=== PATIENT | male | born 1930 | race Caucasian/White ===

== ENCOUNTER 2017-03-18 10:15 | Outpatient (CLI) | payer MEDICARE, OTHER | END 2017-03-18 10:16 | disposition home or self-care (01) | DX: M06.842 Other specified rheumatoid arthritis, left hand (principal); M06.841 Other specified rheumatoid arthritis, right hand; M19.042 Primary osteoarthritis, left hand; M19.041 Primary osteoarthritis, right hand; M79.5 Residual foreign body in soft tissue ==

== ENCOUNTER 2017-05-04 13:18 | Emergency (ER) | payer MEDICARE, OTHER ==
[2017-05-04 13:22] VITALS: BP 148/53
--- NOTE | 2017-05-04 13:49 | ED Physician Documentation ---
History of Present Illness - Stated complaint Stated Complaint: THROAT OBSTRUCTION - Chief complaint Chief Complaint: Heent - History obtained from History obtained from: Patient, Family - History of Present Illness Timing: Enter time (0), Today - Additonal information Additional information: 87 y/o male with a history of GERD was eating a piece of chicken today when he coughed and when he coughed he felt the piece of chicken he was eating get stuck in his esophagus. He feels like it is stuck about [address] He is having some coughing paroxysms Review of Systems Constitutional: denies: Fever Ears: denies: Ear pain Nose: denies: Congestion Throat: denies: Sore throat Cardiac: denies: Chest pain / pressure, Palpitations Respiratory: reports: Cough. denies: Dyspnea GI: denies: Abdominal Pain, Nausea, Vomiting : denies: Dysuria, Frequency PD PAST MEDICAL HISTORY - Past Medical History Cardiovascular: Hypertension, High cholesterol, Other Respiratory: Other Neuro: Headache/migraine Endocrine/Autoimmune: HyPOthyroidism GI: GERD, Colon polyps, Chronic constipation : Benign prostate hypertrophy, Incontinence HEENT: Other Psych: Depression, Anxiety Musculoskeletal: Chronic back pain Derm: None - Past Surgical History Past Surgical History: Yes General: Colonoscopy, EGD Cardiovascular: AAA HEENT: Cataracts - Present Medications Home Medications: Ambulatory Orders Medication Instructions Recorded Confirmed Alfuzosin HCl [Uroxatral] 10 mg PO DAILY 07/13/13 05/04/17 Aspirin [Brianne] 325 mg PO DAILY 07/13/13 05/04/17 Atorvastatin Calcium [Lipitor] 10 mg PO DAILY 07/13/13 05/04/17 Calcium Carbonate [Calcium] 600 mg PO DAILY 07/13/13 05/04/17 Esomeprazole Magnesium [Nexium] 40 mg PO DAILY 07/13/13 05/04/17 Lisinopril 1 tab ORAL DAILY 07/13/13 05/04/17 [place]-3 Fatty Acids/Fish Oil 1 each PO BID 07/13/13 05/04/17 [[place] 3 1,000 mg Softgel] Levothyroxine Sodium [Levoxyl] 25 mcg PO DAILY 02/29/16 05/04/17 Lubiprostone [Amitiza] 1 tab DAILY 02/29/16 05/04/17 lamoTRIgine [LaMICtal] 1 tab DAILY 02/29/16 05/04/17 Calcium Acetate 600 mg PO DAILY 05/29/16 05/04/17 Meclizine [Antivert] 12.5 mg PO TID 05/29/16 05/04/17 - Allergies Allergies/Adverse Reactions: Allergies Allergy/AdvReac Type Severity Reaction Status Date / Time No Known Drug Allergies Allergy Verified 03/10/16 16:39 - Social History Does the pt smoke?: No Smoking Status: Former smoker PD ED PE NORMAL - Vitals Vital signs reviewed: Yes (hypertensive bradycardic ) - General General: No acute distress, Well developed/nourished - HEENT HEENT: Atraumatic, PERRL, EOMI, Moist mucous membranes, Pharynx benign - Neck Neck: Supple, no meningeal sign, No bony TTP, Other (The thyroid is firm enlarged and not nodular. ) - Cardiac Cardiac: RRR, No murmur - Respiratory Respiratory: No respiratory distress, Clear bilaterally - Abdomen Abdomen: Soft, Non tender - Back Back: No CVA TTP, No spinal TTP - Derm Derm: Normal color, Warm and dry, No rash - Extremities Extremities: No deformity, No edema - Neuro Neuro: No motor deficit, No sensory deficit - Psych Psych: Normal mood, Normal affect Results - Vitals Vitals: Vital Signs - 24 hr 05/04/17 13:21 Temperature 35.8 C L Heart Rate 54 L Respiratory 16 Rate Blood Pressure 148/53 H O2 Saturation 96 Oxygen O2 Source Room air PD MEDICAL DECISION MAKING - ED course Complexity details: reviewed old records, reviewed results, re-evaluated patient , considered differential, d/w patient, d/w family ED course: 87 y/o male was eating a piece of chicken and coughed at the same time and the chicken got stuck. He has a FB sensation and has been spitting up his secretions and having coughing paroxysms. Here in the ED he is able to keep his secretions down and he is given a soda to drink and this goes down and his FB sensation improves. He still has a few coughing paroxysms. Departure - Departure Disposition: 01 Home, Self Care Clinical Impression: Esophageal foreign body Qualifiers: Encounter type: initial encounter Qualified Code(s): T18.108A - Unspecified foreign body in esophagus causing other injury, initial encounter Condition: Stable Instructions: ED Foreign Body Esophageal Rslv Follow-Up: Jessy Santiago MD [Primary Care Provider] -
== END 2017-05-04 14:29 | disposition home or self-care (01) ==
LOC: ED 13:18
DX: T18.128A Food in esophagus causing other injury, initial encounter (principal); I10 Essential (primary) hypertension; E78.00 Pure hypercholesterolemia, unspecified; E03.9 Hypothyroidism, unspecified; K21.9 Gastro-esophageal reflux disease without esophagitis; N40.0 Benign prostatic hyperplasia without lower urinary tract symptoms; F32.9 Major depressive disorder, single episode, unspecified; F41.9 Anxiety disorder, unspecified; Z79.82 Long term (current) use of aspirin; Z87.891 Personal history of nicotine dependence
CPT/HCPCS: 99283

== ENCOUNTER 2018-03-26 08:29 | Outpatient (CLI) | payer MEDICARE, OTHER ==
--- NOTE | 2018-03-26 10:07 | CT Report ---
CT BRAIN WITHOUT CONTRAST: 03/26/2018 CLINICAL INDICATION: Diplopia. COMPARISON: 09/07/2014. TECHNIQUE: Axial CT images of the brain were obtained without intravenous contrast. FINDINGS: The ventricles and sulci demonstrate symmetric enlargement, compatible with atrophy. The basilar cisterns remain patent. There is no evidence of hemorrhage, mass effect, or midline shift. The visualized orbital contents and paranasal sinuses are unremarkable. IMPRESSION: STABLE ATROPHY. NO EVIDENCE OF HEMORRHAGE OR MASS EFFECT. CT DOSE REDUCTION STATEMENT In accordance with CT protocol optimization, one or more of the following dose reduction techniques were utilized for this exam: automated exposure control, adjustment of mA and/or KV based on patient size, or use of iterative reconstructive technique. TD: 03/26/2018 09:28
== END 2018-03-26 08:30 | disposition home or self-care (01) ==
LOC: DI 08:29
PROVIDERS: ATTEND Internal Medicine
DX: H53.2 Diplopia (principal)
CPT/HCPCS: 70450

== ENCOUNTER 2018-06-08 13:12 | Outpatient (CLI) | payer MEDICARE, OTHER ==
--- NOTE | 2018-06-08 14:04 | XRAY Report ---
Procedure Date: 06/08/2018 Accession Number: [id number] / [id number] Procedure: FL - Modified Barium Swallow W/SP CPT Code: FULL RESULT: EXAM: Modified Barium Swallow W/SP DATE: 06/08/2018 1:56 PM CLINICAL HISTORY: DYSPHAGIA COMPARISON: None. TECHNIQUE: Under the direction of speech pathology, patient swallowed various consistencies of barium under lateral fluoroscopic observation of the neck. Fluoroscopic exposure time: 1 minute 21 seconds. Number of fluoroscopic images: 60. Cine fluoroscopy recorded. FINDINGS: Airway Protection: Normal epiglottic motion. No episodes of tracheal penetration or aspiration with all consistencies of barium. Other: None. Please also refer to full report from Speech Pathology. IMPRESSION: No aspiration or significant penetration. RADIA
== END 2018-06-08 13:13 | disposition home or self-care (01) ==
LOC: DI 13:12
PROVIDERS: ATTEND Otolaryngology
DX: R13.10 Dysphagia, unspecified (principal)
CPT/HCPCS: 74230; 92611; G8996; G8997; G8998

== ENCOUNTER 2019-09-17 13:27 | Emergency (ER) | payer MEDICARE, OTHER ==
--- NOTE | 2019-09-17 16:45 | ED Physician Documentation ---
PD HPI HEAD INJURY - Stated complaint Stated Complaint: GLF - HEAD LAC - Chief complaint Chief Complaint: Laceration - History obtained from History obtained from: Patient - History of Present Illness Mechanism of head injury: Fell Where head injury occurred: Home Timing - onset: Today Location of injury: Right Associated symptoms: No: LOC, Amnesia, Nausea / vomiting, Neck pain, Paresthesias, Seizures Recently seen: Not recently seen - Additional information Additional information: This is an 89-year-old man who presents with complaints that he was in his recliner when his friend showed up at his house and entered the house he jumped up quickly to go to greet her and went to steps and fell down. He said for the past 20 years he has had problems with his balance is not uncommon for him to fall. They were concerned because he cut the top of his head and it just kept bleeding. He is also scraped up his nose. He did not pass out. He does complain of a headache all over he does take aspirin daily but no other blood thinner. He has not been nauseous had any vomiting, felt dizzy. Denies numbness or tingling into the arms or legs and has no neck pain. No weakness. They were able to get the bleeding under control with pressure but were concerned that the laceration on his scalp would break open. He believes his tetanus is up-to-date stating that his doctor keeps records and keeps him up-to-date on all of that. Review of Systems Constitutional: denies: Fever GI: denies: Nausea, Vomiting Skin: reports: Abrasion (s) (Nose), Laceration (s) Musculoskeletal: denies: Neck pain, Extremity pain Neurologic: reports: Headache, Head injury. denies: Generalized weakness, Focal weakness, Numbness, Difficulty speaking, Syncope, Seizure, Confused, Altered mental status, LOC PD PAST MEDICAL HISTORY - Past Medical History Past Medical History: Yes Cardiovascular: Hypertension, High cholesterol, Other Respiratory: Other Endocrine/Autoimmune: HyPOthyroidism GI: GERD, Colon polyps, Chronic constipation : Benign prostate hypertrophy, Incontinence HEENT: Other Psych: Depression, Anxiety Musculoskeletal: Chronic back pain Derm: None - Past Surgical History Past Surgical History: Yes General: Colonoscopy, EGD Cardiovascular: AAA HEENT: Cataracts - Present Medications Home Medications: Ambulatory Orders Medication Instructions Recorded Confirmed Alfuzosin HCl [Uroxatral] 10 mg PO DAILY 07/13/13 05/04/17 Aspirin [Brianne] 325 mg PO DAILY 07/13/13 05/04/17 Atorvastatin Calcium [Lipitor] 10 mg PO DAILY 07/13/13 05/04/17 Calcium Carbonate [Calcium] 600 mg PO DAILY 07/13/13 05/04/17 Esomeprazole Magnesium [Nexium] 40 mg PO DAILY 07/13/13 05/04/17 Lisinopril 1 tab ORAL DAILY 07/13/13 05/04/17 [place]-3 Fatty Acids/Fish Oil 1 each PO BID 07/13/13 05/04/17 [[place] 3 1,000 mg Softgel] Levothyroxine Sodium [Levoxyl] 25 mcg PO DAILY 02/29/16 05/04/17 Lubiprostone [Amitiza] 1 tab DAILY 02/29/16 05/04/17 lamoTRIgine [LaMICtal] 1 tab DAILY 02/29/16 05/04/17 Calcium Acetate 600 mg PO DAILY 05/29/16 05/04/17 Meclizine [Antivert] 12.5 mg PO TID 05/29/16 05/04/17 - Allergies Allergies/Adverse Reactions: Allergies Allergy/AdvReac Type Severity Reaction Status Date / Time No Known Drug Allergies Allergy Verified 03/10/16 16:39 - Social History Does the pt smoke?: No Smoking Status: Never smoker PD ED PE NORMAL - Vitals Vital signs reviewed: Yes - General General: Alert and oriented X 3, No acute distress, Well developed/nourished - HEENT HEENT: EOMI, Ears normal (No hemotympanum), Other (2 and half centimeter laceration on the right scalp just inside the hairline with some underlying bruising. This is scab and currently not bleeding. There is an abrasion over the bridge of his nose but no pain with palpation along the nasal bones or inferior orbital rim.) - Neck Neck: No bony TTP - Derm Derm: Normal color, Warm and dry - Extremities Extremities: No deformity - Neuro Neuro: Alert and oriented X 3, personal caregiver 2-12 intact, No motor deficit, No sensory deficit, Normal speech - Psych Psych: Normal mood, Normal affect Results - Vitals Vitals: Oxygen O2 Source Room air Procedures - Laceration (location) scalp Length in cm: 2.5 Wound type: Linear Wound Preparation: Hibiclens Skin layer closure: Dermabond Other: Patient tolerated well, No complications, Tetanus UTD Complexity: Simple PD MEDICAL DECISION MAKING - ED course Complexity details: d/w patient, d/w family ED course: I went ahead and just glued the laceration keep it from breaking open. We discussed obtaining a head CT because of his headache and use of aspirin but he has declined that. His friend who is here with him is a spending the night at his house and will monitor him for any signs of closed head injury. Departure - Departure Disposition: 01 Home, Self Care Clinical Impression: Laceration, Abrasion Condition: Good Instructions: ED Abrasion, ED Head Injury Closed, ED Laceration Facial Skin Glue Follow-Up: Jessy Santiago MD [Primary Care Provider] - Comments: May wash the scalp wound after 48 hours. Keep the nasal abrasion clean with mild soap and water and a thin layer of antibiotic ointment. Monitor closely for signs of closed head injury for the next 24 to 48 hours and return immediately if any signs or symptoms to include vomiting, increasing headache, unequal pupils or not acting right. Discharge Date/Time: 09/17/19 17:24
[2019-09-17] MEDS ORDERED: BACITRACIN ZINC OINT 14 GM TOP STA (17:09)
[2019-09-17 17:18] VITALS: BP 153/47
== END 2019-09-17 17:24 | disposition home or self-care (01) ==
LOC: ED 13:27
DX: S01.01XA Laceration without foreign body of scalp, initial encounter (principal); S00.31XA Abrasion of nose, initial encounter; W18.30XA Fall on same level, unspecified, initial encounter; Y93.01 Activity, walking, marching and hiking; Y92.009 Unspecified place in unspecified non-institutional (private) residence as the place of occurrence of the external cause; Z91.81 History of falling; R51 Headache; I10 Essential (primary) hypertension; Z79.82 Long term (current) use of aspirin
CPT/HCPCS: 12001; 99282; A9270

== ENCOUNTER 2020-11-28 07:00 | Outpatient (CLI) | payer MEDICARE, OTHER ==
--- NOTE | 2020-11-28 10:52 | XRAY Report ---
PROCEDURE: Chest 2 View X-Ray INDICATIONS: Shortness of breath TECHNIQUE: 2 view(s) of the chest. COMPARISON: 03/10/2016 FINDINGS: Surgical changes and devices: None. Lungs and pleura: There are bilateral pleural effusions. [id number] on the right and small on the left. Associated compressive atelectasis. No pneumothorax. No focal consolidations. Mediastinum: Mediastinal contours are stable. Heart size is stable. Bones and chest wall: No suspicious bony abnormalities. Soft tissues appear unremarkable. IMPRESSION: Bilateral pleural effusions, [id number] on the right and small on the left. Reviewed by: Martin Lucas MD on 11/28/2020 10:51 AM [facility] Approved by: Martin Lucas MD on 11/28/2020 10:51 AM [facility] Station ID: [id number]
== END 2020-11-28 23:59 | disposition home or self-care (01) ==
LOC: DI.N 07:00
PROVIDERS: ATTEND Internal Medicine
DX: J90 Pleural effusion, not elsewhere classified (principal)

== ENCOUNTER 2021-01-25 16:30 | Outpatient (CLI) | payer MEDICARE, OTHER ==
--- NOTE | 2021-01-25 16:58 | XRAY Report ---
PROCEDURE: Foot 3 View RT INDICATIONS: RT FOOT PAIN TECHNIQUE: 3 views of the foot were acquired. COMPARISON: None FINDINGS: Bones: No fractures or dislocations. No suspicious bony lesions. Moderate scattered IP degenerativ e changes are present. There is deformity of the distal fifth metatarsal. In addition, a fifth metata rsal base fracture is present. Soft tissues: No tibiotalar joint effusion. Achilles tendon appears normal. IMPRESSION: 1. Mildly displaced fifth metatarsal base fracture. 2. Deformity of the mid and distal fifth metatarsal consistent with fracture. Reviewed by: Paola Hilliard MD on 01/25/2021 4:56 PM PDT Approved by: Paola Hilliard MD on 01/25/2021 4:56 PM PDT Station ID: [id number]
== END 2021-01-25 16:31 | disposition home or self-care (01) ==
LOC: DI.N 16:30
PROVIDERS: ATTEND Internal Medicine
DX: S93.601A Unspecified sprain of right foot, initial encounter (principal); S92.351A Displaced fracture of fifth metatarsal bone, right foot, initial encounter for closed fracture

== ENCOUNTER 2021-02-19 09:40 | Outpatient (CLI) | payer MEDICARE, OTHER ==
--- NOTE | 2021-02-19 12:18 | Ultrasound Report ---
PROCEDURE: Abdomen Complete INDICATIONS: CHECK FOR SUSPECTING CIRHOSIS TECHNIQUE: Real-time scanning was performed of the abdominal and retroperitoneal organs, with image documentatio n. COMPARISON: None. FINDINGS: Liver: Liver is normal in size and homogeneous in echotexture. Gallbladder: There is echogenic sludge material and small stones seen in dependent portion of gallbla dder lumen. No gallbladder wall thickening or pericholecystic fluid. No sonographic Gonzalez's sign. Biliary ducts: Intrahepatic bile ducts are non-dilated. Extrahepatic bile duct caliber measures 4.4 mm. Normal is 6-7 mm or less in diameter, or 10 mm or less post-cholecystectomy. Pancreas: Visualized portions of the pancreas are sonographically normal. Spleen: Spleen is normal in size. Echogenic foci are seen scattered in splenic parenchyma suggestive of calcified granuloma. Kidneys: Kidneys are normal in size and echotexture. Right kidney measures 10.5 cm long; left kidne y measures 10.1 cm long. No hydronephrosis or nephrolithiasis. No solid masses. Multiple bilateral renal cysts are seen. Largest cyst measures 6.2 x 5.7 x 5.7 cm in size. Largest left renal cyst amanda ures 3.2 x 2.9 x 2.9 cm in size. Aorta: There is distal abdominal aortic aneurysm measures 4.9 x 5.9 cm in largest AP and transverse d imensions. Aortobiiliac stent is seen. Thrombus formation within the aneurysmal sac is seen. Iliacs: Proximal common iliac arteries are normal in caliber at less than 2.5 cm. IVC: Intrahepatic inferior vena cava is patent. Miscellaneous: No free abdominal fluid. There are bilateral pleural effusion more prominent on the right side. IMPRESSION: 1. Cholelithiasis, no sonographic evidence of acute cholecystitis. No biliary ductal dilatation. 2. No discrete hepatic lesion is seen. 3. Bilateral renal cysts as above, no hydronephrosis. 4. Fusiform infrarenal abdominal aortic aneurysm measures up to 4.9 x 5.9 cm in size[address] Aortobiiliac st ent in place. 5. Scattered splenic granulomas. 6. Right greater than left bilateral pleural effusions. Reviewed by: Evelio Fritz MD on 02/19/2021 11:16 AM [facility] Approved by: Evelio Fritz MD on 02/19/2021 11:16 AM [facility] Station ID: [id number]
== END 2021-02-19 09:41 | disposition home or self-care (01) ==
LOC: DI 09:40
PROVIDERS: ATTEND Internal Medicine Hematology & Oncology
DX: K80.20 Calculus of gallbladder without cholecystitis without obstruction (principal); N28.1 Cyst of kidney, acquired; I71.4 Abdominal aortic aneurysm, without rupture; J90 Pleural effusion, not elsewhere classified; D73.89 Other diseases of spleen; D53.9 Nutritional anemia, unspecified; F10.10 Alcohol abuse, uncomplicated; Z85.51 Personal history of malignant neoplasm of bladder